=== PATIENT | female | born 1965 | race American Indian/Alaskan Native ===

== ENCOUNTER 2016-11-04 10:49 | Day surgery (SDC) | payer OTHER, MEDICARE ==
--- NOTE | ~2016-11-04 | EGD ---
EGD REPORT [facility] [address] [address] NAME: ALONSO WILDER : 63 [place]US : [place] [facility] [place] [id number] AGE: 51 ADM/REG DATE : 11/04/16 MR#: [id number] REPORT SERV DATE: 11/04/16 DICTATED BY: NELLY LOPEZ DATE: 11/04/16 REPORT STATUS : Draft TRANSCRIBED BY: [facility] DATE: 11/04/16 Endoscopy Center Patient Name: Alonso Wilder Date of : 1965 Attending MD: NELLY LOPEZ MD Procedure Date No Time: 11/04/2016 Procedure: Upper GI endoscopy Indications: Dysphagia, Gastro-esophageal reflux disease Referring MD: PRISCILA VAZQUEZ MD Medicines: Propofol per Anesthesia Complications: No immediate complications. Procedure: Pre-Anesthesia Assessment: - ASA Grade Assessment: III - A patient with severe systemic disease. After obtaining informed consent, the endoscope was passed under direct vision. Throughout the procedure, the patient's blood pressure, pulse, and oxygen saturations were monitored continuously. The GIF [id number] was introduced through the mouth, and advanced to the third part of duodenum. The upper GI endoscopy was accomplished without difficulty. The patient tolerated the procedure well. Findings: Non-severe esophagitis with no bleeding was found in the entire esophagus. No endoscopic abnormality was evident in the esophagus to explain the patient's complaint of dysphagia. It was decided, however, to proceed with dilation. A guidewire was placed and the scope was withdrawn. Dilation was performed with a Savary dilator with mild resistance at 60 Fr. The esophagus looked satisfactory post dilation A small hiatus hernia was present. Seen on retroflexion, done prior to dilation Diffuse mild inflammation characterized by congestion (edema) and erythema was found in the entire examined stomach. Biopsies were taken with a cold forceps for Helicobacter pylori testing. Localized mild inflammation characterized by congestion (edema) and erythema was found in the duodenal bulb. Biopsies were taken with a cold forceps for evaluation of celiac disease. And giardia, whipple's disease, and enteritis The 2nd part of the duodenum and 3rd part of the duodenum were normal. Biopsies were taken with a cold forceps for evaluation of celiac disease. And giardia, whipple's disease, and enteritis Impression: - Non-severe esophagitis. EGD REPORT [place] [id number] [facility] [place]. [address] NAME: ALONSO WILDER : [birth year] STATUS : REG [facility]#: [id number] AGE: 51 ADM/REG DATE : 11/04/16 MR#: [id number] REPORT SERV DATE: 11/04/16 DICTATED BY: NELLY LOPEZ DATE: 11/04/16 REPORT STATUS : Draft TRANSCRIBED BY: [facility] DATE: 11/04/16 - No endoscopic esophageal abnormality to explain patient's dysphagia. Esophagus dilated. Dilated. - Hiatus hernia. - Gastritis. Biopsied. - Duodenitis. Biopsied. - Normal 2nd part of the duodenum and 3rd part of the duodenum. Biopsied. Recommendation: - Patient has a contact number available for emergencies. The signs and symptoms of potential delayed complications were discussed with the patient. Return to normal activities tomorrow. Written discharge instructions were provided to the patient. - diet is clear liquid today, full liquid tomorrow, soft mushy food the next day, and resume usual diet the day after that. - Continue present medications. - Await pathology results. - Return to my office as previously scheduled. - Discharge patient to home. Procedure Code(s): --- Professional --- 17751, Esophagogastroduodenoscopy, flexible, transoral; with insertion of guide wire followed by passage of dilator(s) through esophagus over guide wire 29109, Esophagogastroduodenoscopy, flexible, transoral; with biopsy, single or multiple Diagnosis Code(s): --- Professional --- K20.9, Esophagitis, unspecified R13.10, Dysphagia, unspecified K44.9, Diaphragmatic hernia without obstruction or gangrene K29.70, Gastritis, unspecified, without bleeding K29.80, Duodenitis without bleeding K21.9, Gastro-esophageal reflux disease without esophagitis CPT copyright 2013 [employer]. All rights reserved. The codes documented in this report are preliminary and upon shovel engineer review may be revised to meet current compliance requirements. Nelly Lopez MD NELLY LOPEZ MD EGD REPORT [facility] [address] [address] NAME: ALONSO WILDER : [birth year] STATUS : REG [facility]#: [id number] AGE: 51 ADM/REG DATE : 11/04/16 MR#: [id number] REPORT SERV DATE: 11/04/16 DICTATED BY: NELLY LOPEZ DATE: 11/04/16 REPORT STATUS : Draft TRANSCRIBED BY: [facility] DATE: 11/04/16 11/04/2016 2:54 PM This report has been signed electronically. Number of Addenda: 0 Note Initiated On: 11/04/2016 1:21 PM Scope Withdrawal Time 0 hours 0 minutes [address] [place], [place] [address] [address]
[~2016-11-04 10:49] MED LIST: ABILIFY5 PO; ACIPHEX PO; ALLERGY SHOTS SC; ATRONASAL3 NAS; B COMPLETE PO; B12250T PO; BENTYL10 PO; BENTYL20 PO; BOTOX; CALTRA600D PO; CELEXA20 PO; CETIRIZINE HCL5 MG PO; COLON HEALTH PO; COUMADIN4 MG; COUMADIN4 MG PO; COUMADIN6 MG PO; CREON DR 36,001 EACH PO; CREON PO; CREON12000 UNT PO; CRESTOR10 PO; CRESTOR20 MG PO; CRESTOR5 MG PO; CYANO1000T PO; DEPAKOT500 PO; DEPAKOTEER PO; DETROLLA4 PO; ENDOCET1 TAB PO; ENTERAGAM; ERYTHROMYCIN O3.5 G1 OPH; FLAG500TAB PO; FLONASE NAS; FOLIC PO; IRON325 MG PO; JANTOVEN4 MG PO; JANTOVEN5 MG PO; JANTOVEN6 MG PO; KLOR-CON M2020 MEQ PO; LOM PO; LOP25 PO; LOP50 PO; LORTAB 5 PO; LOTENSIN HCT1 TA1 PO; LOTENSIN HCT1 TA2 PO; LOVENOX120 SC; LOVENOX1C SC; MCZ25 PO; MIRALAXPKT PO; MYCOSTATAB PO; NEUR400 PO; NEXIUM40 PO; NITROQUICK0.3 MG SL; NORCO1 TA1 PO; NORCO1 TAB PO; NTG150 SL; OTC IRON PO; P125 PO; PATADAY OPH; PATANOL OPH; PHENTERMINE37.5 MG PO; PRILOSEC40 MG PO; PROAIRRESP INH; PROTONIX PO; PROVERA 10 MG T10 MG OR; PROZAC PO; QUESTRAN4 GM PO; REG PO; SINGULAIR1 PO; SYMBICORT 160/41 INH INH; SYMBICORT 80/4.1 INH INH; TOPAMAX100 PO; TOPAMAX200 MG PO; TURMERIC PO; VANCOCIN HCL125 MG PO; VENTOLIN HFA INH; VITAMIN B-121000 MC1 SL; VITAMIN D1000 UNI1 PO; VITAMIN D31000 UNIT PO; VOLTAREN1 % TOP; XANAX1 MG PO; ZOFRAN4 PO; [UNRECOGNIZED DRUG - OTHER]; [UNRECOGNIZED DRUG - OTHER] PO; [UNRECOGNIZED DRUG - REMARK]
[2016-11-04 11:24] LABS: INTERNATIONAL NORMAL RATI 1.1 UNITS (-)
[2016-11-04 11:26] LABS: PROTIME (NOT ORD) 13.8 SEC (12.0-14.5)
== END 2016-11-04 23:59 | disposition home health service (06) ==
LOC: DMU 10:49
PROVIDERS: Anesthesiology; Internal Medicine Gastroenterology
PROC: 0DB98ZX Excision of Duodenum, Via Natural or Artificial Opening Endoscopic, Diagnostic (ICD-10-PCS; 2016-11-04)
PROC: 0D758ZZ Dilation of Esophagus, Via Natural or Artificial Opening Endoscopic (ICD-10-PCS; principal; 2016-11-04 11:30)
PROC: 0DB68ZX Excision of Stomach, Via Natural or Artificial Opening Endoscopic, Diagnostic (ICD-10-PCS; 2016-11-04 11:30)
DX: K29.50 Unspecified chronic gastritis without bleeding (principal); K44.9 Diaphragmatic hernia without obstruction or gangrene; E66.01 Morbid (severe) obesity due to excess calories; K21.0 Gastro-esophageal reflux disease with esophagitis; G43.909 Migraine, unspecified, not intractable, without status migrainosus; G47.33 Obstructive sleep apnea (adult) (pediatric); E03.9 Hypothyroidism, unspecified; F41.9 Anxiety disorder, unspecified; F32.9 Major depressive disorder, single episode, unspecified; D50.9 Iron deficiency anemia, unspecified; Z99.81 Dependence on supplemental oxygen; Z86.711 Personal history of pulmonary embolism; Z88.2 Allergy status to sulfonamides; Z88.8 Allergy status to other drugs, medicaments and biological substances; I10 Essential (primary) hypertension; E78.00 Pure hypercholesterolemia, unspecified; J45.909 Unspecified asthma, uncomplicated; M19.90 Unspecified osteoarthritis, unspecified site; Z90.49 Acquired absence of other specified parts of digestive tract; Z98.51 Tubal ligation status; Z98.890 Other specified postprocedural states
CPT/HCPCS: 85610; 88305; J2250